=== PATIENT | female | born 1995 | race Caucasian/White ===

== ENCOUNTER 2019-07-13 11:58 | Emergency (ER) | payer OTHER ==
[~2019-07-13] VITALS: Ht 167.6 cm; Wt 52.8 kg
[2019-07-13] MEDS ORDERED: PROPRANOLOL 10 MG TABLET PO ONE (12:30)
[2019-07-13 12:38] LABS: BASOPHILS # (AUTO) 0.03 x10^3/uL (0-0.1); BASOPHILS % (AUTO) 0 % (0-1); EOSINOPHILS % (AUTO) 1 % (1-7); LYMPHOCYTES # (AUTO) 3.01 x10^3/uL (1-3.4); LYMPHOCYTES % (AUTO) 38 % (22-44); MD NO; MEAN CORPUSCULAR HEMOGLOBIN 34.3 pg (27.0-34.8); MEAN CORPUSCULAR HGB CONC 34.1 g/dL (32.4-35.8); MEAN CORPUSCULAR VOLUME 100.5 fL (80-100); MEAN PLATELET VOLUME 8.5 fL (7.4-10.4); MONOCYTES # (AUTO) 0.46 x10^3/uL (0.2-0.8); MONOCYTES % (AUTO) 6 % (2-9); NEUTROPHILS # (AUTO) 4.29 x10^3/uL (1.8-6.8); NEUTROPHILS % (AUTO) 54 % (42-75); PLATELET COUNT 269 x10^3/uL (130-400); RED BLOOD COUNT 4.37 x10^6/uL (3.82-5.3); RED CELL DISTRIBUTION WIDTH 12.5 % (9.6-15.2)
[2019-07-13 12:48] LABS: ALBUMIN 4.4 g/dL (3.4-5.0); ANION GAP 5 mmol/L (5-15); CHLORIDE 106 mmol/L (98-107); CREATININE 1.11 mg/dL (0.55-1.02)
--- NOTE | 2019-07-13 13:03 | NUR ---
PT ARRIVES TO ED FROM WORK FOR IRREGULAR HR. PT REPORTS THAT SHE HAD 7 PVCS IN ONE STRIP ON HER WORK MONITOR AND BECAME CONCERNED. PT DENIOES ANY CARDIAC HX. PT REPROTS BEING STRESSED WITN NEW JOB. PT HAS NO OTHER CONCERNES. PT REPORTS GOOD HEALTH AND EXERCISE OTHERWISE. PT CONNECTED TO MONITORS, PIV PLACED AND MEDICATED PER EMAR.
[2019-07-13 14:08] VITALS: BP 123/81
--- NOTE | 2019-07-13 14:08 | NUR ---
PT RESTING IN BED, REPORTS FEELING BETTER. VSS
--- NOTE | 2019-07-13 14:25 | NUR ---
Patient/Caregiver given discharge instructions and they have confirmed that they understand the instructions. Patient ambulatory with steady gait.
== END 2019-07-13 14:52 | disposition home or self-care (01) ==
LOC: ED 14:43
DX: I49.3 Ventricular premature depolarization (principal)
CPT/HCPCS: 36415; 71045; 80048; 82040; 83735; 85025; 93005; 99284

== ENCOUNTER 2019-09-23 08:53 | Outpatient (CLI) | payer OTHER ==
[2019-09-23 09:26] LABS: ALANINE AMINOTRANSFERASE 35 U/L (12-78); ANION GAP 2 mmol/L (5-15); CALCIUM 8.6 mg/dL (8.5-10.1); CHLORIDE 110 mmol/L (98-107); CHOLESTEROL, TOTAL 139 mg/dL (140-239); CREATININE 0.75 mg/dL (0.55-1.02)
[2019-09-23 09:28] LABS: ALKALINE PHOSPHATASE 45 U/L (45-117); BILIRUBIN,TOTAL 0.7 mg/dL (0.2-1.0); CHOL/HDL RATIO 2.2; HDL CHOL % 46 % (28-40); HDL CHOLESTEROL (DIRECT) 64 mg/dL (40-60); LDL CHOLESTEROL,CALCULATED 64 mg/dL (54-169); TOTAL PROTEIN 7.2 g/dL (6.4-8.2); TRIGLYCERIDES 56 mg/dL (50-200); VLDL CHOLESTEROL 11 mg/dL (0-25)
== END 2019-09-23 23:59 | disposition home or self-care (01) ==
LOC: LAB 08:53
PROVIDERS: ATTEND Registered Nurse
DX: I49.3 Ventricular premature depolarization (principal); N28.9 Disorder of kidney and ureter, unspecified; R00.2 Palpitations
CPT/HCPCS: 36415; 80053; 80061